=== PATIENT | female | born 1955 | race Caucasian/White ===

== ENCOUNTER → 2019-10-23 10:16 | Outpatient (BNVA) | payer BC, SELFPAY | PROVIDERS: Family Provider Registered Nurse; PCP Registered Nurse; Visit Provider Registered Nurse | DX: I10 Essential (primary) hypertension (principal); Z02.89 Encounter for other administrative examinations | CPT/HCPCS: 80053; 80061 ==

== ENCOUNTER → 2020-04-26 09:01 | Outpatient (BNVA) | payer BC, SELFPAY | PROVIDERS: Family Provider Registered Nurse; PCP Registered Nurse; Visit Provider Podiatrist Foot & Ankle Surgery | DX: M77.32 Calcaneal spur, left foot (principal); M77.31 Calcaneal spur, right foot; M19.072 Primary osteoarthritis, left ankle and foot; M19.071 Primary osteoarthritis, right ankle and foot; M79.672 Pain in left foot; M79.671 Pain in right foot | CPT/HCPCS: 73630 ==

== ENCOUNTER → 2020-11-30 09:57 | Outpatient (BNVA) | payer MEDICARE, SELFPAY | PROVIDERS: Family Provider Registered Nurse; PCP Registered Nurse; Visit Provider Registered Nurse | DX: I10 Essential (primary) hypertension (principal); E03.9 Hypothyroidism, unspecified; R73.9 Hyperglycemia, unspecified | CPT/HCPCS: 80053; 80061; 81000; 83036; 84443; 85025 ==

== ENCOUNTER → 2020-12-07 11:02 | Outpatient (BNVA) | payer MEDICARE, SELFPAY | PROVIDERS: Family Provider Registered Nurse; PCP Registered Nurse; Visit Provider Registered Nurse | DX: Z01.419 Encounter for gynecological examination (general) (routine) without abnormal findings (principal); E03.9 Hypothyroidism, unspecified | CPT/HCPCS: 88175 ==

== ENCOUNTER → 2020-12-28 13:51 | Outpatient (BNVA) | payer MEDICARE, SELFPAY | PROVIDERS: Family Provider Registered Nurse; PCP Registered Nurse; Visit Provider Registered Nurse | DX: Z00.00 Encounter for general adult medical examination without abnormal findings (principal); I10 Essential (primary) hypertension | CPT/HCPCS: 81000 ==

== ENCOUNTER 2021-01-20 07:57 | Outpatient (CLI) | payer MEDICARE, SELFPAY ==
--- NOTE | 2021-01-20 08:02 | MM_ITS ---
WS: [id number] Bilateral screening digital mammogram, 01/20/2021 Clinical Data: SCREENING Comparison: 02/17/2019, 10/24/2017, 01/30/2017, 01/26/2016, 10/07/2014, 07/09/2013, 11/09/2010, 08/23/2009, 04/24/2006, 12/13/2004. Findings: The breast parenchymal pattern shows fibroglandular tissue. No spiculated masses or clustered calcifi cations are seen. There are no secondary signs of carcinoma. Numerous intramammary lymph nodes are pr [place]ent. MM/[id number] Impression: 1. Negative bilateral mammogram unchanged. 2. Recommend annual screening mammograms. BIRADS: 1-Negative FOLLOW UP: 1 Year Follow-up The CAD security checker was used.
== END 2021-01-20 07:58 | disposition home or self-care (01) ==
LOC: RADSHAW 08:00
PROVIDERS: PCP Registered Nurse; Visit Provider Registered Nurse
DX: Z12.31 Encounter for screening mammogram for malignant neoplasm of breast (principal)
CPT/HCPCS: 77067

== ENCOUNTER → 2021-03-31 00:01 | Outpatient (BNVA) | payer MEDICARE, SELFPAY | PROVIDERS: PCP Registered Nurse; Visit Provider Registered Nurse | DX: Z20.822 Contact with and (suspected) exposure to COVID-19 (principal); J06.9 Acute upper respiratory infection, unspecified; H66.92 Otitis media, unspecified, left ear; Z11.52 Encounter for screening for COVID-19; R05.3 Chronic cough | CPT/HCPCS: 87486; 87581; 87633 ==

== ENCOUNTER → 2022-01-11 10:18 | Outpatient (BNVA) | payer MEDICARE, SELFPAY | PROVIDERS: PCP Registered Nurse; Visit Provider Orthopaedic Surgery | DX: M25.561 Pain in right knee (principal) | CPT/HCPCS: 99202 ==

== ENCOUNTER 2022-03-08 08:52 | Outpatient (CLI) | payer MEDICARE, SELFPAY ==
--- NOTE | 2022-03-08 09:02 | MM_ITS ---
WS: [id number] VIEWS: MLO and CC views both breasts. 3D digital tomosynthesis is also included in this exam. Comparison made with prior exam of 10/07/2014, 01/26/2016, 01/30/2017, 10/24/2017, 02/17/2019, 01/20/2021. Findings: There was no sign of mass, architectural distortion or suspicious calcification in either breast. Sta ble appearing nodular densities in both breasts. Scattered fibroglandular densities MM/[id number] Impression: BI-RADS: 2-Benign FOLLOW-UP: 1 Year Follow-up This mammogram was also analyzed by the Computer Aided Detection System R2 Imag e Index Clerk.
== END 2022-03-08 08:53 | disposition home or self-care (01) ==
LOC: RAD 08:53
PROVIDERS: PCP Registered Nurse; Visit Provider Family Medicine
DX: Z12.31 Encounter for screening mammogram for malignant neoplasm of breast (principal)
CPT/HCPCS: 77063; 77067

== ENCOUNTER 2022-06-12 22:00 | Emergency (ER) | payer MEDICARE, SELFPAY ==
[2022-06-12 22:03] VITALS: BP 190/102; PULSE 72; RESP 16; TEMP 36.6; O2SAT 98
[2022-06-12 22:43] LABS: Basophils % 0.5 %; Eosinophils # 0.1 10^3/uL (0.0-0.8); Eosinophils % 0.8 %; Hematocrit 42.5 % (37.0-47.0); Hemoglobin 14.2 g/dL (11.5-15.3); Lymphocytes % 12.2 %; Mean Corpuscular HGB Conc 33.4 g/dL (30.0-36.0); Mean Corpuscular Volume 92.8 fl (81-99); Mean Platelet Volume 10.2 fL (7.4-10.4); Monocytes # 0.6 10^3/uL (0.2-0.9); Monocytes % 6.7 %; Neutrophils # 6.64 10^3/uL (1.8-7.7); Neutrophils % 79.3 %; Nucleated Red Blood Cells % 0 %; Platelet Count 226 10^3/cmm (130-400); Red Blood Count 4.58 10^6/uL (4.1-5.3); Red Cell Distribution Width 12.6 % (12.1-15.1); White Blood Count 8.4 10^3/uL (4.0-10.0)
[2022-06-12 23:00] LABS: Alanine Aminotransferase 14 U/L (0-33); Albumin Level 3.8 g/dL (3.5-5.2); Alkaline Phosphatase 61 U/L (35-105); Aspartate Amino Transferase 17 U/L (0-32); Blood Urea Nitrogen 15 mg/dL (8-23); Calcium 9.5 mg/dL (8.5-10.5); Carbon Dioxide 28 mmol/L (22-29); Chloride 98 mmol/L (98-107); Globulin 3.6 g/dL (1.3-4.6); Glomerular Filtration Rate 71.5 mL/min (90-130); Glucose 114 mg/dL (65-115); Lipase 31 U/L (13-60); Osmolality Calculated 290 mOsm/kg (285-295); Sodium 139 mmol/L (136-145); Total Bilirubin 0.5 mg/dL (0.15-1.2); Total Protein 7.4 g/dL (6.6-8.7)
--- NOTE | 2022-06-12 23:21 | CTR_ITS ---
PROCEDURE INFORMATION: Exam: CT Abdomen And Pelvis With Contrast Exam date and time: 06/12/2022 11:31 PM Age: 66 years old Clinical indication: Abdominal pain; Acute; Prior surgery; Surgery date: 6+ months; Surgery type: Appy; Additional info: Abd pain TECHNIQUE: Imaging protocol: Computed tomography of the abdomen and pelvis with contrast. Radiation optimization: All CT scans at this facility use at least one of these dose optimization techniques: automated exposure control; mA and/or kV adjustment per patient size (includes targeted exams where dose is matched to clinical indication); or iterative reconstruction. Contrast material: OMNI 350; Contrast volume: 100 ml; Contrast route: INTRAVENOUS (IV); REPORTING DATA: Count of CT and Cardiac NM exams in prior 12 months: This patient has received 0 known CTs and 0 known cardiac nuclear medicine studies in the 12 months prior to the current study. COMPARISON: US gall bladder [id number] 01/04/2022 2:02 PM RADIATION DOSE METRICS: Total DLP (mGy-cm): 958.68 FINDINGS: Lungs: Lung bases are clear. Liver: Normal. No mass. Gallbladder and bile ducts: Gallbladder wall is mild-moderately thickened and somewhat indistinct, striated appearance concerning for acute cholecystitis. There is no pericholecystic fluid or inflammatory changes. There are some subtle depended densities within the gallbladder lumen suspicious for noncalcified gallstones. Bile ducts are not dilated with common bile duct measuring 5 mm. Pancreas: Normal. No ductal dilation. Spleen: Normal. No splenomegaly. Adrenal glands: Normal. No mass. Kidneys and ureters: Normal. No hydronephrosis. Stomach and bowel: Scattered diverticula large bowel without evidence of diverticulitis. Appendix: No evidence of appendicitis. Intraperitoneal space: Unremarkable. No free air. No significant fluid collection. Vasculature: Scattered atherosclerotic changes of the abdominal aorta and iliac vessels. No aortic aneurysm. Lymph nodes: Unremarkable. No enlarged lymph nodes. Urinary bladder: Unremarkable as visualized. Reproductive: Uterus is retroverted. Bones/joints: Unremarkable. No acute fracture. Soft tissues: There is a bandlike area of soft tissue thickening and calcification within the subcutaneous tissues posterior to the lower lumbar spine that may be postsurgical in nature. This should be confirmed correlate with history. CT/CT abdomen pelvis w con* [id number] IMPRESSION: Cholelithiasis with additional findings suspicious for acute cholecystitis. Follow-up gallbladder ultrasound recommended for further assessment.
[2022-06-12] MEDS: iohexol 350 mg/mL 500 mL Btl (per mL) IV (23:27)
--- NOTE | 2022-06-12 23:28 | W.ED.ABDPA2 ---
HPI - Abdominal Pain General: Chief Complaint: Abdominal Pain Stated Complaint: abd pain Time Seen by Provider: 06/12/22 23:06 Source: patient Mode of arrival: ambulatory Limitations: no limitations History of Present Illness: 66-year-old female states she has been having abdominal pain over the last 10 days states that sharp pain in the right side of her abdomen she is seen twice last week [place] states they did blood work but she never had any imaging states that tonight her pain is worsened and she had an episode of vomiting she denies any fevers denies any dysuria denies any worsening proving factors. Her pain is currently a 9 out of 10. Associated Symptoms: Reports nausea and vomiting; Denies chills, dysuria and fever(s) Review of Systems Const: Denies: fever(s), chills, body aches or change in appetite Eyes: Denies: blurry vision or eye discomfort ENMT: Denies: throat pain or dental pain Card: Denies: chest pain Resp: Denies: dyspnea GI: Reports: abdominal pain, nausea and vomiting : Denies: dysuria Musc: Denies: neck pain or back pain Skin/Breast: Denies: rash Neuro: Denies: headache(s) Psych: Denies: depression Jamshid/Lymph: Denies: easy bruising All/Imm: Denies: urticaria PFSH ED PFSH: Medical History Hypothyroid Surgical History History of bilateral tubal ligation Hx of appendectomy Hx of oral surgery Hx of tonsillectomy Family History Other Cancer Diabetes Hypertension Social History Smoking and tobacco status: never smoked Alcohol intake: never Adopted: No Caregiver/support person: No Lives independently: No Household members: spouse Marital status: service: No Current occupational status: retired Sexually active: Yes Current gender identity: Female Physical Exam Const: COMMON NORMALS: no acute distress, patient oriented x3 and healthy appearing HENMT: COMMON NORMALS: normocephalic and atraumatic HEAD & SCALP: normocephalic and atraumatic Eye: COMMON NORMALS: Equal, round and reactive pupils present and EOMs intact bilaterally PUPIL: Yes Equal, round and reactive pupils present Neck/C-Spine: COMMON NORMALS: full ROM and supple Chest: COMMONS NORMALS: normal inspection of the chest and normal palpation of entire chest wall Resp: COMMON NORMALS: normal respiratory effort, No retractions, No use of accessory muscles and clear to auscultation bilaterally AUSCULTATION: clear to auscultation bilaterally Cardio: COMMON NORMALS: regular rate, regular rhythm and No murmurs present (Cardio) RATE: regular rate RHYTHM: regular rhythm GI: COMMON NORMALS: Normal to inspection, nondistended, normoactive bowel sounds present, Soft to palpation and no masses PALPATION: Yes Soft to palpation OTHER: right sided tenderness Extremity: COMMON NORMALS: normal to inspection and full ROM Neuro: COMMON NORMALS: patient oriented x3, moves all extremities and no focal motor deficits Psych: COMMON NORMALS: mental status grossly normal, Normal thought process present and cooperative THOUGHT PROCESS: Normal thought process present Skin: COMMON NORMALS: no rashes or lesions noted and no wounds GENERAL SKIN EXAM: no rashes or lesions noted Course Vital Signs: Vital signs: Vital Signs Temperature 97.9 F 06/12/22 22:03 Pulse Rate 72 06/12/22 22:03 Respiratory Rate 16 06/12/22 22:03 Blood Pressure 190/102 06/12/22 22:03 Pulse Oximetry 98 06/12/22 22:03 Oxygen Delivery Me thod 06/12/22 22:03 MDM - Abdominal Pain Medical Decision Making Patient presents here with abdominal pain likely from cholelithiasis. White count is normal no signs of acute cholecystitis her exam at discharge is benign we will get her follow-up with surgery we will place her on Cipro along with pain meds she is to return if worsening she understands agrees to plan. Lab Data 06/12/22 22:36 06/12/22 22:36 Labs/Radiology: Radiology Impressions Abdomen/Pelvis CT 06/12/22 23:21 IMPRESSION: Cholelithiasis with additional findings suspicious for acute cholecystitis. Follow-up gallbladder ultrasound recommended for further assessment. Gallbladder Ultrasound 06/13/22 00:21 IMPRESSION: 1. Cholelithiasis, see additional details above. 2. Mild biliary tree prominence, see above discussion. 3. Other findings discussed above. Laboratory Results WBC 8.4 10^3/uL (4.0-10.0) 06/12/22 22: RBC 4.58 10^6/uL (4.1-5.3) 06/12/22 22:36 Hgb 14.2 g/dL (11.5-15.3) 06/12/22 22:36 Hct 42.5 % (37.0-47.0) 06/12/22 22:36 MCV 92.8 fl (81-99) 06/12/22 22:36 MCH 31.0 pg (28.0-34.0) 06/12/22 22: MCHC 33.4 g/dL (30.0-36.0) 06/12/22 22:36 RDW 12.6 % (12.1-15.1) 06/12/22 22: Plt Count 226 10^3/cmm (130-400) 06/12/22 22: MPV 10.2 fL (7.4-10.4) 06/12/22 22:36 Neut % (Auto) 79.3 % 06/12/22 22:36 Lymph % (Auto) 12.2 % 06/12/22 22:36 Wood % (Auto) 6.7 % 06/12/22 22:36 Eos % (Auto) 0.8 % 06/12/22 22:36 Baso % (Auto) 0.5 % 06/12/22:36 Neut # (Auto) 6.64 10^3/uL (1.8-7.7) 06/12/22 22:36 Lymph # (Auto) 1.0 10^3/uL (0.8-4.8) 06/12/22 22:36 Wood # (Auto) 0.6 10^3/uL (0.2-0.9) 06/12/22:36 Eos # (Auto) 0.1 10^3/uL (0.0-0.8) 06/12/22 22:36 Baso # (Auto) 0.0 10^3/uL (0.0-0.1) 06/12/22 22:36 Nucleated RBC % (auto) 0 % 06/12/22: Nucleated RBCs # 0.0 /100WBC 06/12/22 22:36 Sodium 139 mmol/L (136-145) 06/12/22 22:36 Potassium 4.0 mmol/L (3.5-5.1) 06/12/22 22:36 Chloride 98 mmol/L (98-107) 06/12/22 22:36 Carbon Dioxide 28 mmol/L (22-29) 06/12/22 22:36 Anion Gap 17.0 (5-19) 06/12/22 22:36 BUN 15 mg/dL (8-23) 06/12/22 22:36 Creatinine 0.8 mg/dL (0.5-0.9) 06/12/22 22:36 GFR Calculation 71.5 mL/min (90-130) L 06/12/22 22:36 Glucose 114 mg/dL (65-115) 06/12/22 22:36 Calculated Osmolality 290 mOsm/kg (285-295) 06/12/22 22:36 Lactate 1.2 mmol/L (0.5-2.2) 06/12/22 22:36 Calcium 9.5 mg/dL (8.5-10.5) 06/12/22 22:36 Total Bilirubin 0.5 mg/dL (0.15-1.2) 06/12/22 22:36 AST 17 U/L (0-32) 06/12/22 22:36 ALT 14 U/L (0-33) 06/12/22 22:36 Alkaline Phosphatase 61 U/L (35-105) 06/12/22 22:36 Total Protein 7.4 g/dL (6.6-8.7) 06/12/22 22:36 Albumin 3.8 g/dL (3.5-5.2) 06/12/22 22:36 Globulin 3.6 g/dL (1.3-4.6) 06/12/22 22:36 Lipase 31 U/L (13-60) 06/12/22 22:36 Urine Color Yellow (Yellow) 06/12/22 23:55 Urine Appearance Clear (CLEAR) 06/12/22 23:55 Urine pH 5 (5-7) 06/12/22 23:55 Ur Specific [place] 1.010 (1.005-1.030) 06/12/22 23:55 Urine Protein Trace (Negative) 06/12/22 23:55 Urine Glucose (UA) Norm (Normal) 06/12/22 23:55 Urine Ketones 2+ (Negative) H 06/12/22 23:55 Urine Blood Neg (Negative) 06/12/22 23:55 Urine Nitrate Negative (Negative) 06/12/22 23:55 Urine Bilirubin Neg (Negative) 06/12/22 23:55 Urine Urobilinogen Norm mg/dL (Negative) 06/12/22 23:55 Ur Leukocyte Esterase Negative (Negative) 06/12/22 23:55 Urine RBC 0-4 /hpf (0-2) H 06/12/22 23:55 Urine WBC 0-4 /hpf (0-5) H 06/12/22 23:55 Ur Squamous Epith Cells 0-4 /hpf (0-5) H 06/12/22 23:55 Amorphous Sediment Not Reportable 06/12/22 23:55 Urine Bacteria Trace /hpf (NONE) 06/12/22 23:55 Discharge Plan Discharge Patient Disposition: Home Clinical Impression: Abdominal pain, Cholelithiasis Condition: Stable Prescriptions: New hydrocodone-acetaminophen 5-325 mg tablet 1 tab PO Q6H PRN (Reason: pain) Qty: 14 0RF ondansetron 4 mg tablet,disintegrating 4 mg PO Q6H PRN (Reason: nausea and vomiting) Qty: 14 0RF ciprofloxacin HCl 500 mg tablet 500 mg PO BID Qty: 14 0RF No Action estradiol [Estrace] 0.01 % (0.1 mg/gram) cream 0.5 appful vaginal .twice a week 30 Days Qty: 42.5 1RF metronidazole 500 mg tablet 500 mg PO BID 10 Days Qty: 20 0RF nystatin 100,000 unit/gram ointment 1 applic topical BID Qty: 30 2RF levothyroxine 25 mcg tablet See Rx Instructions .ROUTE .COMPLEX Qty: 90 0RF Dose Instruction: TAKE 1 TABLET BY MOUTH DAILY Rx Instructions: TAKE 1 TABLET BY MOUTH DAILY Discharge Orders: Discharge ED (Routine); Ordered 06/13/22 Ordered By: Minoo Wilburn Referrals: Frank Perez DO [Physician] - 1-3 days Mulugeta Bonds MD [Primary Care Provider] - Discharge Diet: Advance as tolerated Discharge Activity: Resume usual activity Patient Instructions: Gallstones (ED), Abdominal Pain (ED), Opioid Safety Coding Level of Care Code ED Inspector Returned Materials for [employer]
[2022-06-12 23:32] LABS: Lactate (Lactic Acid level) 1.2 mmol/L (0.5-2.2)
[2022-06-12] MEDS: ondansetron 2 mg/ML SDV 2 mL 4 MG IVP (23:53)
[2022-06-12] MEDS: morphine 4 mg/mL SDV 1 mL IVP (23:53)
--- NOTE | 2022-06-13 00:21 | USR_ITS ---
PROCEDURE INFORMATION: Exam: US Abdomen, Limited; Right Upper Quadrant Exam date and time: 06/13/2022 12:47 AM Age: 66 years old Clinical indication: Abdominal pain; Patient HX: Ruq pain , chronic, since December 2021 TECHNIQUE: Imaging protocol: Real time ultrasound of the abdomen with image documentation. Limited exam focused on the right upper quadrant. COMPARISON: US gall bladder [id number] 01/04/2022 2:02 PM FINDINGS: Liver: Unremarkable liver, no focal abnormality. The main portal vein appears patent, with hepatopetal flow. Gallbladder: Multiple shadowing gallstones within the gallbladder. There is also a moderate amount of biliary sludge in the gallbladder. The gallbladder appears abnormally distended, transverse diameter up to 5 cm. Moderate diffuse gallbladder wall thickening/edema, measuring up to 7.5 mm. No definite pericholecystic fluid. While nonspecific, these findings could represent acute or chronic cholecystitis. Technologist states patient was tender over the gallbladder region during scanning. Biliary ducts: Mild biliary tree prominence for age, with common duct measuring up to 7.3 mm. No visible common duct stone by ultrasound. Correlation with laboratory/bilirubin levels may be helpful to determine if there is any significant biliary obstruction. Pancreas: Visible pancreas unremarkable. Right kidney: Images of the right kidney show no hydronephrosis. US/US gall bladder [id number] IMPRESSION: 1. Cholelithiasis, see additional details above. 2. Mild biliary tree prominence, see above discussion. 3. Other findings discussed above.
[2022-06-13 00:24] LABS: Add Urine Culture? No; Add Urine Microscopic? YES; Bacteria Urine TRACE /hpf; Bilirubin Urine Neg (Negative); Blood Urine Neg (Negative); Glucose Urine UA Norm (Normal); Ketones Urine 2+ (Negative); Leukocyte Esterase Urine Negative (Negative); Nitrate Urine Negative (Negative); Protein Urine Trace (Negative); RBC Urine 0-4 /hpf (0-2); Squamous Epithelial Cell Urine 0-4 /hpf (0-5); Urine Appearance Clear (CLEAR); Urine Color Yellow (Yellow); Urobilinogen Urine Norm (Negative); WBC Urine 0-4 /hpf (0-5); pH Urine 5 (5-7)
[2022-06-13] MEDS: sodium chloride 0.9% 1,000 ML 999 ML IV (00:45)
--- NOTE | 2022-06-13 09:54 | DCPLANNER ---
Addendum entered by Juli De Dios 06/14/22 08:58: manager msw received the following message from the general surgery clinic regarding follow up appointment: Offered patient my next available appointment (07/12) she did not want to wait that long and stated that Dr. Rushing can see her next week. Original Note: manager msw had message to schedule a follow up appointment for patient with general surgery. manager msw sent patients information to the front office staff at general surgery. Patients information will be printed and reviewed. Clinic will call patient with appointment information.
== END 2022-06-13 02:30 | disposition home or self-care (01) ==
PROVIDERS: Emergency Provider Emergency Medicine; PCP Family Medicine
DX: K80.20 Calculus of gallbladder without cholecystitis without obstruction (principal)
CPT/HCPCS: 74177; 76705; 80053; 81001; 81003; 83605; 83690; 85025; 96361; 96374; 96375; 99285; J2270; J2405; J7030; Q9967

== ENCOUNTER 2022-07-11 09:59 | Emergency (ER) | payer MEDICARE, SELFPAY ==
[2022-07-11] VITALS (14 sets, daily range): BP systolic 129–158; BP diastolic 65–102; PULSE 80–96; RESP 14–18; TEMP 37.2; O2SAT 90–97
--- NOTE | 2022-07-11 10:13 | XR_ITS ---
WS: [id number] Exam: XR chest 1V portable [id number] Date/Time of Exam: 07/11/2022 10:15 AM Reason For Exam: dyspnea/cough No priors. The lungs are fully expanded. No infiltrates are noted. Cardiomediastinal silhouette is unremarkable for technique. Bony structures are intact. XR/XR chest 1V portable [id number] IMPRESSION: 1. No acute cardiopulmonary process noted.
--- NOTE | 2022-07-11 10:14 | ECG_ITS ---
[facility] Test Date: 2022-07-11 Pat Name: Traci Mathew Department: Room: Gender: Female [employer]: : 1955 Requested By: Moreno Benson Order Number: [id number] Codey MD: Ramy Levin M.D. Measurements Intervals [place] Rate: 83 P: 36 CT: 152 QRS: 43 QRSD: 85 T: 14 QT: 339 QTc: 400 Interpretive Statements SINUS RHYTHM LOW QRS VOLTAGE IN PRECORDIAL LEADS [QRS DEFLECTION < 1.0 mV IN CHEST LEADS] No previous ECG available for comparison Electronically Signed On 07-11-2022 20:41:18 CDT by Ramy Levin M.D. [id number]
[2022-07-11] MEDS: ondansetron 2 mg/ML SDV 2 mL 4 MG IVP (10:37)
[2022-07-11] MEDS: morphine 4 mg/mL SDV 1 mL IVP (10:37)
--- NOTE | 2022-07-11 10:40 | W.ED.ABDPA2 ---
Documented by User: Moreno Harmon DO 07/12/22 07:24 HPI - Abdominal Pain General: Chief Complaint: Abdominal Pain Stated Complaint: SOB, Rib pain, Muscle pain Time Seen by Provider: 07/11/22 10:11 Source: patient Mode of arrival: ambulatory History of Present Illness: Six 6-year-old female presents emergency room. Complaining of abdominal pain that began 2 days ago. Its worse when she stands. Is mostly in epigastric right upper quadrant area. She had a laparoscopic cholecystectomy about 2 weeks ago. She had been doing well up until to 48 hours ago. She denies any dysuria urgency or frequency no hematochezia melena hematemesis or coffee-ground emesis. MD elicited complaint: abdominal pain Pertinent past history: other (Recent cholecystectomy by Dr. R[facility] at [facility]) Onset (ago): day(s) (3) Pain Consistency: constant Location: RUQ Severity: severe Quality: cramping Radiation: none Exacerbating factors: nothing Relieving factors: nothing Associated Symptoms: Reports nausea and vomiting; Denies anorexia, belching, bloating, change in bowel habits, change in stool character, chills, coffee ground emesis, constipation, GI cramping, diarrhea, dyspepsia, dysuria, excessive flatus, fever(s), heartburn, hematochezia, hematuria, hematemesis, fecal incontinence, loose stools, melena, poor appetite and syncope Review of Systems Const: Denies: fever(s) or chills ENMT: Denies: throat pain, ear or mastoid pain, nasal discharge or nasal congestion Card: Denies: chest pain, palpitations, irregular heart rhythm or syncope Resp: Denies: dyspnea, productive cough or non-productive cough GI: Reports: abdominal pain, nausea and vomiting; Denies: hematemesis, coffee ground emesis, heartburn, diarrhea, constipation, bloating, GI cramping, belching, excessive flatus, fecal incontinence, change in bowel habits, change in stool character, hematochezia or melena : Denies: dysuria or hematuria Skin/Breast: Denies: rash or pruritus PFSH ED PFSH: Medical History Hypothyroid Surgical History History of bilateral tubal ligation Hx of appendectomy Hx of oral surgery Hx of tonsillectomy Family History Other Cancer Diabetes Hypertension Social History Smoking and tobacco status: never smoked Alcohol intake: never Substance/Drug Use: never Adopted: No Caregiver/support person: No Lives independently: No Household members: spouse Marital status: service: No Current occupational status: retired Sexually active: Yes Do you think of yourself as: Straight/Heterosexual Current gender identity: Female Physical Exam Const: GENERAL APPEARANCE: cooperative and comfortable ORIENTATION/CONSCIOUSNESS: Yes awake, Yes oriented to person, Yes oriented to place and Yes oriented to time HENMT: COMMON NORMALS: normocephalic, atraumatic and hearing grossly normal bilaterally HEAD & SCALP: normocephalic and atraumatic Resp: COMMON NORMALS: normal respiratory effort, No retractions, No use of accessory muscles and clear to auscultation bilaterally AUSCULTATION: clear to auscultation bilaterally Cardio: COMMON NORMALS: regular rate, regular rhythm and No murmurs present (Cardio) RATE: regular rate RHYTHM: regular rhythm GI: COMMON NORMALS: No hepatosplenomegaly present AUSCULTATION: Yes normoactive bowel sounds PALPATION: Yes Tenderness to palpation present (GI) (Diffused epigastric upper quadrant abdominal tenderness), No Guarding due to palpation present (GI) and Yes No hepatosplenomegaly present Extremity: COMMON NORMALS: normal to inspection, capillary refill normal, no clubbing, cyanosis or edema, no calf tenderness and no pedal edema Neuro: SENSORIUM/ORIENTATION: Yes oriented to person, Yes oriented to place and Yes oriented to time Skin: COMMON NORMALS: no rashes or lesions noted GENERAL SKIN EXAM: no rashes or lesions noted Course Vital Signs: Vital signs: Vital Signs Temperature 99.0 F 07/11/22 10:03 Pulse Rate 90 07/11/22 19:38 Respiratory Rate 16 07/11/22 19:38 Blood Pressure 131/65 07/11/22 19:38 Pulse Oximetry 95 07/11/22 19:38 Oxygen Delivery Me thod Nasal Cannula 07/11/22 19:28 Oxygen Flow Rate 2 04/25/23 18:00 MDM - Abdominal Pain Medical Decision Making Concerning for bile leak. Pain medications given discussed with the patient also discussed with Who did the original procedure, and Dr. David who read the CT. Recommendation is for a HIDA scan to confirm bile leak if this is the case patient will require transfer for ERCP. At change of shift still waiting on HIDA scan. There is a delay because the nuclear material had to be transported from [facility]. Care signed out to Dr. Wilburn at change of shift. See final notes for diagnosis and disposition. CT shows what appears to be a bile leak we are waiting on nuclear material for HIDA scan to verify if it is in bile leak will need transferred for ERCP. Patient presents here with a bile leak noted on HIDA scan along with CT scan did speak to physician at [facility] will transfer there for higher level of care for ERCP GI needs. She has been stable while here. Medical Records I reviewed the patient's medical records. Lab Data I reviewed the patient's lab results. 07/11/22 10:34 07/11/22 10:34 Labs/Radiology: Radiology Impressions Chest X-Ray 07/11/22 10:13 IMPRESSION: 1. No acute cardiopulmonary process noted. Abdomen/Pelvis CT 07/11/22 10:43 IMPRESSION: 1. 2 well-circumscribed fluid collections in the gallbladder fossae and deep to the LEFT hepatic lobe suspicious for biloma status post cholecystectomy. Contiguous small amount of fluid about the RIGHT hepatic lobe. Recommend HIDA scan for further evaluation. 2. Mild inflammatory stranding and induration RIGHT upper quadrant. 3. LEFT subhepatic fluid collection compresses the distal stomach and proximal duodenum. 4. Small to moderate amount of free fluid in the pelvis likely postoperative. Notified Moreno Harmon DO at 07/11/2022 1:05 PM. Hepatobiliary Scan Nuclear Medicine 07/11/22 12:56 IMPRESSION: 1. There is accumulation of radiotracer in the gallbladder fossa, this corresponds to the fluid collection noted on the previous CT scan and is suspicious for a bile leak with an associated biloma. 2. No accumulation of radiotracer was seen to correspond to the 2nd fluid collection inferior to the left hepatic lobe. COMMENTS: THIS REPORT CONTAINS FINDINGS THAT MAY BE CRITICAL TO PATIENT CARE. The findings were verbally communicated via telephone conference with Dr. Wilburn at 5:29 PM CDT on 07/11/2022. The findings were acknowledged and understood. Laboratory Results WBC 11.7 10^3/uL (4.0-10.0) H 07/11/22 10:34 RBC 4.39 10^6/uL (4.1-5.3) 07/11/22 10:34 Hgb 13.6 g/dL (11.5-15.3) 07/11/22 10:34 Hct 42.3 % (37.0-47.0) 07/11/22 10:34 MCV 96.4 fl (81-99) 07/11/22 10:34 MCH 31.0 pg (28.0-34.0) 07/11/22 10:34 MCHC 32.2 g/dL (30.0-36.0) 07/11/22 10:34 RDW 12.4 % (12.1-15.1) 07/11/22 10:34 Plt Count 386 10^3/cmm (130-400) 07/11/22 10:34 MPV 9.7 fL (7.4-10.4) 07/11/22 10:34 Neut % (Auto) 86.7 % 07/11/22 10:34 Lymph % (Auto) 7.8 % 07/11/22 10:34 [place] % (Auto) 4.5 % 07/11/22 10:34 Eos % (Auto) 0.1 % 07/11/22 10:34 Baso % (Auto) 0.3 % 07/11/22 10:34 Neut # (Auto) 10.15 10^3/uL (1.8-7.7) H 07/11/22 10:34 Lymph # (Auto) 0.9 10^3/uL (0.8-4.8) 07/11/22 10:34 Franklin # (Auto) 0.5 10^3/uL (0.2-0.9) 07/11/22 10:34 Eos # (Auto) 0.0 10^3/uL (0.0-0.8) 07/11/22 10:34 Baso # (Auto) 0.0 10^3/uL (0.0-0.1) 07/11/22 10:34 Nucleated RBC % (auto) 0 % 07/11/22 10:34 Nucleated RBCs # 0.0 /100WBC 07/11/22 10:34 Sodium 138 mmol/L (136-145) 07/11/22 10:34 Potassium 4.6 mmol/L (3.5-5.1) 07/11/22 10:34 Chloride 100 mmol/L (98-107) 07/11/22 10:34 Carbon Dioxide 25 mmol/L (22-29) 07/11/22 10:34 Anion Gap 17.6 (5-19) 07/11/22 10:34 BUN 11 mg/dL (8-23) 07/11/22 10:34 Creatinine 0.8 mg/dL (0.5-0.9) 07/11/22 10:34 GFR Calculation 71.5 mL/min (90-130) L 07/11/22 10:34 Glucose 112 mg/dL (65-115) 07/11/22 10:34 Calculated Osmolality 286 mOsm/kg (285-295) 07/11/22 10:34 Lactic Acid 1.6 mmol/L (0.5-2.2) 07/11/22 13:13 Calcium 9.1 mg/dL (8.5-10.5) 07/11/22 10:34 Total Bilirubin 1.6 mg/dL (0.15-1.2) H 07/11/22 10:34 AST 81 U/L (0-32) H 07/11/22 10:34 ALT 159 U/L (0-33) H 07/11/22 10:34 Alkaline Phosphatase 198 U/L (35-105) H 07/11/22 10:34 Troponin T Baseline 18 ng/L (0-10) H 07/11/22 10:34 Troponin T 120 Minute 16.91 ng/L (0-10) H 07/11/22 13:13 Delta Troponin T -1.09 ABS# (0-10) L 07/11/22 13:13 Troponin T Hi Sens 6Hr 19.18 ng/L (0-10) H 07/11/22 16:34 Troponin T Hi Sens 6Hr Delta 1.18 ng/L (0-12) 07/11/22 16:34 Total Protein 6.3 g/dL (6.6-8.7) L 07/11/22 10:34 Albumin 3.7 g/dL (3.5-5.2) 07/11/22 10:34 Globulin 2.6 g/dL (1.3-4.6) 07/11/22 10:34 Lipase 22 U/L (13-60) 07/11/22 10:34 Urine Color [place] (Yellow) 07/11/22 14:07 Urine Appearance Cloudy (CLEAR) A 07/11/22 14:07 Urine pH 5 (5-7) 07/11/22 14:07 Ur Specific [place] 1.025 (1.005-1.030) 07/11/22 14:07 Urine Protein 1+ (Negative) H 07/11/22 14:07 Urine Glucose (UA) Norm (Normal) 07/11/22 14:07 Urine Ketones 1+ (Negative) H 07/11/22 14:07 Urine Blood 2+ (Negative) H 07/11/22 14:07 Urine Nitrate Positive (Negative) H 07/11/22 14:07 Urine Bilirubin 2+ (Negative) H 07/11/22 14:07 Urine Urobilinogen 4 mg/dL (Negative) H 07/11/22 14:07 Ur Leukocyte Esterase 1+ (Negative) H 07/11/22 14:07 Urine RBC 5-10 /hpf (0-2) H 07/11/22 14:07 Urine WBC 10-15 /hpf (0-5) H 07/11/22 14:07 Ur Squamous Epith Cells 25-40 /hpf (0-5) H 07/11/22 14:07 Amorphous Sediment Not Reportable 07/11/22 14:07 Urine Bacteria 2+ /hpf (NONE) H 07/11/22 14:07 Urine Mucus 2+ /hpf 07/11/22 14:07 Discharge Plan Discharge Patient Disposition: Xfer Short-Term Hosp Clinical Impression: Abdominal pain, Bile leak Condition: Stable Referrals: Mulugeta Bonds MD [Primary Care Provider] - Patient Instructions: Abdominal Pain (ED) Coding Level of Care Code ED Aggregate Conveyor Operator for Chg Fwd Documented by User: Minoo Wilburn MD 07/11/22 18:16 HPI - Abdominal Pain General: Chief Complaint: Abdominal Pain Stated Complaint: SOB, Rib pain, Muscle pain Time Seen by Provider: 07/11/22 10:11 PFSH ED PFSH: Medical History Hypothyroid Surgical History History of bilateral tubal ligation Hx of appendectomy Hx of oral surgery Hx of tonsillectomy Family History Other Cancer Diabetes Hypertension Social History Smoking and tobacco status: never smoked Alcohol intake: never Substance/Drug Use: never Adopted: No Caregiver/support person: No Lives independently: No Household members: spouse Marital status: service: No Current occupational status: retired Sexually active: Yes Do you think of yourself as: Straight/Heterosexual Current gender identity: Female Course Vital Signs: Vital signs: Vital Signs Temperature 99.0 F 07/11/22 10:03 Pulse Rate 90 07/11/22 19:38 Respiratory Rate 16 07/11/22 19:38 Blood Pressure 131/65 07/11/22 19:38 Pulse Oximetry 95 07/11/22 19:38 Oxygen Delivery Me thod Nasal Cannula 07/11/22 19:28 Oxygen Flow Rate 2 07/11/22 18:00 MDM - Abdominal Pain Medical Decision Making CT shows what appears to be a bile leak we are waiting on nuclear material for HIDA scan to verify if it is in bile leak will need transferred for ERCP. Patient presents here with a bile leak noted on HIDA scan along with CT scan did speak to physician at [facility] will transfer there for higher level of care for ERCP GI needs. She has been stable while here. Lab Data 07/11/22 10:34 07/11/22 10:34 Labs/Radiology: Radiology Impressions Chest X-Ray 07/11/22 10:13 IMPRESSION: 1. No acute cardiopulmonary process noted. Abdomen/Pelvis CT 07/11/22 10:43 IMPRESSION: 1. 2 well-circumscribed fluid collections in the gallbladder fossae and deep to the LEFT hepatic lobe suspicious for biloma status post cholecystectomy. Contiguous small amount of fluid about the RIGHT hepatic lobe. Recommend HIDA scan for further evaluation. 2. Mild inflammatory stranding and induration RIGHT upper quadrant. 3. LEFT subhepatic fluid collection compresses the distal stomach and proximal duodenum. 4. Small to moderate amount of free fluid in the pelvis likely postoperative. Notified Moreno Harmon DO at 07/11/2022 1:05 PM. Hepatobiliary Scan Nuclear Medicine 07/11/22 12:56 IMPRESSION: 1. There is accumulation of radiotracer in the gallbladder fossa, this corresponds to the fluid collection noted on the previous CT scan and is suspicious for a bile leak with an associated biloma. 2. No accumulation of radiotracer was seen to correspond to the 2nd fluid collection inferior to the left hepatic lobe. COMMENTS: THIS REPORT CONTAINS FINDINGS THAT MAY BE CRITICAL TO PATIENT CARE. The findings were verbally communicated via telephone conference with Dr. Wilburn at 5:29 PM CDT on 07/11/2022. The findings were acknowledged and understood. Laboratory Results WBC 11.7 10^3/uL (4.0-10.0) H 07/11/22 10:34 RBC 4.39 10^6/uL (4.1-5.3) 07/11/22 10:34 Hgb 13.6 g/dL (11.5-15.3) 07/11/22 10:34 Hct 42.3 % (37.0-47.0) 07/11/22 10:34 MCV 96.4 fl (81-99) 07/11/22 10:34 MCH 31.0 pg (28.0-34.0) 07/11/22 10:34 MCHC 32.2 g/dL (30.0-36.0) 07/11/22 10:34 RDW 12.4 % (12.1-15.1) 07/11/22 10:34 Plt Count 386 10^3/cmm (130-400) 07/11/22 10:34 MPV 9.7 fL (7.4-10.4) 07/11/22 10:34 Neut % (Auto) 86.7 % 07/11/22 10:34 Lymph % (Auto) 7.8 % 07/11/22 10:34 Franklin % (Auto) 4.5 % 07/11/22 10:34 Eos % (Auto) 0.1 % 07/11/22 10:34 Baso % (Auto) 0.3 % 07/11/22 10:34 Neut # (Auto) 10.15 10^3/uL (1.8-7.7) H 07/11/22 10:34 Lymph # (Auto) 0.9 10^3/uL (0.8-4.8) 07/11/22 10:34 Franklin # (Auto) 0.5 10^3/uL (0.2-0.9) 07/11/22 10:34 Eos # (Auto) 0.0 10^3/uL (0.0-0.8) 07/11/22 10:34 Baso # (Auto) 0.0 10^3/uL (0.0-0.1) 07/11/22 10:34 Nucleated RBC % (auto) 0 % 07/11/22 10:34 Nucleated RBCs # 0.0 /100WBC 07/11/22 10:34 Sodium 138 mmol/L (136-145) 07/11/22 10:34 Potassium 4.6 mmol/L (3.5-5.1) 07/11/22 10:34 Chloride 100 mmol/L (98-107) 07/11/22 10:34 Carbon Dioxide 25 mmol/L (22-29) 07/11/22 10:34 Anion Gap 17.6 (5-19) 07/11/22 10:34 BUN 11 mg/dL (8-23) 07/11/22 10:34 Creatinine 0.8 mg/dL (0.5-0.9) 07/11/22 10:34 GFR Calculation 71.5 mL/min (90-130) L 07/11/22 10:34 Glucose 112 mg/dL (65-115) 07/11/22 10:34 Calculated Osmolality 286 mOsm/kg (285-295) 07/11/22 10:34 Lactic Acid 1.6 mmol/L (0.5-2.2) 07/11/22 13:13 Calcium 9.1 mg/dL (8.5-10.5) 07/11/22 10:34 Total Bilirubin 1.6 mg/dL (0.15-1.2) H 07/11/22 10:34 AST 81 U/L (0-32) H 07/11/22 10:34 ALT 159 U/L (0-33) H 07/11/22 10:34 Alkaline Phosphatase 198 U/L (35-105) H 07/11/22 10:34 Troponin T Baseline 18 ng/L (0-10) H 07/11/22 10:34 Troponin T 120 Minute 16.91 ng/L (0-10) H 07/11/22 13:13 Delta Troponin T -1.09 ABS# (0-10) L 07/11/22 13:13 Troponin T Hi Sens 6Hr 19.18 ng/L (0-10) H 07/11/22 16:34 Troponin T Hi Sens 6Hr Delta 1.18 ng/L (0-12) 07/11/22 16:34 Total Protein 6.3 g/dL (6.6-8.7) L 07/11/22 10:34 Albumin 3.7 g/dL (3.5-5.2) 07/11/22 10:34 Globulin 2.6 g/dL (1.3-4.6) 07/11/22 10:34 Lipase 22 U/L (13-60) 07/11/22 10:34 Urine Color [place] (Yellow) 07/11/22 14:07 Urine Appearance Cloudy (CLEAR) A 07/11/22 14:07 Urine pH 5 (5-7) 07/11/22 14:07 Ur Specific [place] 1.025 (1.005-1.030) 07/11/22 14:07 Urine Protein 1+ (Negative) H 07/11/22 14:07 Urine Glucose (UA) Norm (Normal) 07/11/22 14:07 Urine Ketones 1+ (Negative) H 07/11/22 14:07 Urine Blood 2+ (Negative) H 07/11/22 14:07 Urine Nitrate Positive (Negative) H 07/11/22 14:07 Urine Bilirubin 2+ (Negative) H 07/11/22 14:07 Urine Urobilinogen 4 mg/dL (Negative) H 07/11/22 14:07 Ur Leukocyte Esterase 1+ (Negative) H 07/11/22 14:07 Urine RBC 5-10 /hpf (0-2) H 07/11/22 14:07 Urine WBC 10-15 /hpf (0-5) H 07/11/22 14:07 Ur Squamous Epith Cells 25-40 /hpf (0-5) H 07/11/22 14:07 Amorphous Sediment Not Reportable 07/11/22 14:07 Urine Bacteria 2+ /hpf (NONE) H 07/11/22 14:07 Urine Mucus 2+ /hpf 07/11/22 14:07 Discharge Plan Discharge Patient Disposition: Xfer Short-Term Hosp Clinical Impression: Abdominal pain, Bile leak Condition: Stable Referrals: Mulugeta Bonds MD [Primary Care Provider] - Patient Instructions: Abdominal Pain (ED) Coding Level of Care Code ED Aggregate Conveyor Operator for Win Campbell
[2022-07-11] MEDS: sodium chloride 0.9% 1,000 ML 999 ML IV (10:41)
--- NOTE | 2022-07-11 10:43 | CT_ITS ---
WS: [id number] CT ABDOMEN PELVIS TECHNIQUE: Contrast-enhanced CT of the abdomen and pelvis with coronal and sagittal reformatted image s. CLINICAL INFORMATION: abd pain COMPARISON: CT June 12, 2022 DLP: 961.[address] scans at [facility] use at least one of these dose optimization techniques: automated e xposure control; mA and/or kV adjustment per patient size (includes targeted exams where dose is matc hed to clinical indication); or iterative reconstruction. FINDINGS: Recent post cholecystectomy. Fluid collections in the gallbladder fossa measuring 6.3 x 3.6 cm adjace nt to the cholecystectomy clips. Additional collection inferior to the LEFT hepatic lobe measuring 5. 3 x 3.8 cm. Collection abuts the traversing distal stomach and 1st part of the duodenum. Mild inflamm atory changes in the RIGHT upper quadrant. Small amount of fluid about the RIGHT hepatic lobe appears contiguous with the gallbladder fossa fluid collection. Findings suspicious for biloma post cholecys tectomy. Abscess is an additional less likely consideration. Distal common bile duct appears normal. Slight bibasilar atelectasis. Noncalcified nodule RIGHT lower lobe along the fissure measuring 6 mm. Adrenal glands are normal. Normal spleen. Normal pancreatic p arenchymal enhancement. Normal caliber abdominal aorta. Small amount of free fluid in the pelvis. CT/CT abdomen pelvis w con* [id number] IMPRESSION: 1. 2 well-circumscribed fluid collections in the gallbladder fossae and deep t o the LEFT hepatic lobe suspicious for biloma status post cholecystectomy. Cont iguous small amount of fluid about the RIGHT hepatic lobe. Recommend HIDA scan for further evaluation. 2. Mild inflammatory stranding and induration RIGHT upper quadrant. 3. LEFT subhepatic fluid collection compresses the distal stomach and proximal duodenum. 4. Small to moderate amount of free fluid in the pelvis likely postoperative. Notified Moreno Harmon DO at 07/11/2022 1:05 PM.
[2022-07-11 10:51] LABS: Basophils % 0.3 %; Eosinophils % 0.1 %; Hematocrit 42.3 % (37.0-47.0); Hemoglobin 13.6 g/dL (11.5-15.3); Lymphocytes # 0.9 10^3/uL (0.8-4.8); Lymphocytes % 7.8 %; Mean Corpuscular HGB Conc 32.2 g/dL (30.0-36.0); Mean Corpuscular Volume 96.4 fl (81-99); Mean Platelet Volume 9.7 fL (7.4-10.4); Monocytes # 0.5 10^3/uL (0.2-0.9); Monocytes % 4.5 %; Neutrophils # 10.15 10^3/uL (1.8-7.7); Neutrophils % 86.7 %; Nucleated Red Blood Cells % 0 %; Platelet Count 386 10^3/cmm (130-400); Red Blood Count 4.39 10^6/uL (4.1-5.3); Red Cell Distribution Width 12.4 % (12.1-15.1); White Blood Count 11.7 10^3/uL (4.0-10.0)
[2022-07-11 11:11] LABS: Troponin(5th) Baseline 18 ng/L (0-10)
[2022-07-11 11:13] LABS: Alanine Aminotransferase 159 U/L (0-33); Albumin Level 3.7 g/dL (3.5-5.2); Alkaline Phosphatase 198 U/L (35-105); Anion Gap 17.6 (5-19); Aspartate Amino Transferase 81 U/L (0-32); Blood Urea Nitrogen 11 mg/dL (8-23); Calcium 9.1 mg/dL (8.5-10.5); Carbon Dioxide 25 mmol/L (22-29); Chloride 100 mmol/L (98-107); Globulin 2.6 g/dL (1.3-4.6); Glomerular Filtration Rate 71.5 mL/min (90-130); Glucose 112 mg/dL (65-115); Lipase 22 U/L (13-60); Osmolality Calculated 286 mOsm/kg (285-295); Potassium 4.6 mmol/L (3.5-5.1); Sodium 138 mmol/L (136-145); Total Bilirubin 1.6 mg/dL (0.15-1.2); Total Protein 6.3 g/dL (6.6-8.7)
[2022-07-11] MEDS: iohexol 350 mg/mL 500 mL Btl (per mL) IV (12:07)
--- NOTE | 2022-07-11 12:49 | ECG_ITS ---
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 Measurements Intervals [place] Rate: 95 P: 21 LA: 164 QRS: -4 QRSD: 85 T: 4 QT: 314 QTc: 395 Interpretive Statements SINUS RHYTHM MINIMAL VOLTAGE CRITERIA FOR LVH, CONSIDER NORMAL VARIANT [MEETS CRITERIA IN ONE OF: R(aVL), S(V1), R(V5), R(V5/V6)+S(V1)] POSSIBLE ANTERIOR MYOCARDIAL INFARCTION , OF INDETERMINATE AGE [30 ms Q WAVE IN V3/V4, OR R < 0.2 mV IN V4] Compared to ECG 07/11/2022 10:56:22 Myocardial infarct finding now present Electronically Signed On 07-11-2022 20:44:04 CDT by Ramy Levin M.D. [id number]
--- NOTE | 2022-07-11 12:56 | NMR_ITS ---
PROCEDURE INFORMATION: Exam: NM Hepatobiliary Including Gallbladder When Present Exam date and time: 07/11/2022 3:50 PM Age: 66 years old Clinical indication: Ruq pain; Prior surgery; Surgery date: <1 month; Surgery type: Cholecystectomy; Patient HX: Abnormal CT scan; Additional info: Bile leak cholecystectomy TECHNIQUE: Imaging protocol: Hepatobiliary system imaging including the gallbladder when present. Projections: Frontal abdomen. Radiopharmaceutical: 8.2 mCI Tc-99m Mebrofenin (Choletec, Bromotriethyl-HIRAL), IV. Time of imaging post radiopharmaceutical administration: 60 minutes following radiopharmaceutical. COMPARISON: CT abdomen pelvis w con* [id number] 07/11/2022 11:55 AM FINDINGS: Liver: Normal uptake and excretion of radiotracer from the hepatic parenchyma. No accumulation of radiotracer was seen to correspond to the 2nd fluid collection inferior to the left hepatic lobe. Gallbladder: There is accumulation of radiotracer in the gallbladder fossa, this corresponds to the fluid collection noted on the previous CT scan and is suspicious for a bile leak with an associated biloma. Bile ducts: Radiotracer is visualized in the bile ducts at 10 minutes post injection. Stomach and bowel: Radiotracer is visualized in the small bowel at 10 minutes post injection. No evidence for enterogastric reflux. [place]/NM hepatobiliary wo phar [id number] IMPRESSION: 1. There is accumulation of radiotracer in the gallbladder fossa, this corresponds to the fluid collection noted on the previous CT scan and is suspicious for a bile leak with an associated biloma. 2. No accumulation of radiotracer was seen to correspond to the 2nd fluid collection inferior to the left hepatic lobe. COMMENTS: THIS REPORT CONTAINS FINDINGS THAT MAY BE CRITICAL TO PATIENT CARE. The findings were verbally communicated via telephone conference with Dr. Wilburn at 5:29 PM CDT on 07/11/2022. The findings were acknowledged and understood.
--- NOTE | 2022-07-11 13:16 | PC.NURSE ---
Hepatobiliary dose ordered. ETA 1700.
[2022-07-11 13:35] LABS: Lactic Sepsis W/Reflex 1.6 mmol/L (0.5-2.2)
[2022-07-11 13:37] LABS: Troponin 5 2HR 16.91 ng/L (0-10)
[2022-07-11 13:38] LABS: Troponin 5 2HR Delta -1.09 ABS# (0-10)
[2022-07-11] MEDS: piperacillin-tazobactam 3.375 GM in sodium chloride 0.9% (plus) 50 ML IV (14:01)
[2022-07-11 14:57] LABS: Add Urine Microscopic? YES; Bilirubin Urine 2+ (Negative); Blood Urine 2+ (Negative); Glucose Urine UA Norm (Normal); Ketones Urine 1+ (Negative); Leukocyte Esterase Urine 1+ (Negative); Nitrate Urine Positive (Negative); Protein Urine 1+ (Negative); Specific Gravity, Urine 1.025 (1.005-1.030); Urine Appearance Cloudy (CLEAR); Urine Color Orange (Yellow); Urobilinogen Urine 4 mg/dL (Negative); pH Urine 5 (5-7)
[2022-07-11 14:58] LABS: Add Urine Culture? No; Bacteria Urine 2+ /hpf; Mucus Urine 2+ /hpf; Squamous Epithelial Cell Urine 25-40 /hpf (0-5)
--- NOTE | 2022-07-11 17:15 | ECG_ITS ---
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 Measurements Intervals [place] Rate: 89 P: 4 CO: 155 QRS: -12 QRSD: 88 T: -12 QT: 334 QTc: 408 Interpretive Statements SINUS RHYTHM MODERATE VOLTAGE CRITERIA FOR LVH, CONSIDER NORMAL VARIANT [MEETS CRITERIA IN ONE OF: R(aVL), S(V1), R(V5), R(V5/V6)+S(V1)] POSSIBLE ANTERIOR MYOCARDIAL INFARCTION , PROBABLY OLD [30 ms Q WAVE IN V3/V4, OR R < 0.2 mV IN V4] Compared to ECG 07/11/2022 12:49:28 No significant changes Electronically Signed On 07-11-2022 20:42:36 CDT by Ramy Levin M.D. [id number]
[2022-07-11 18:21] LABS: Troponin 5 6HR 19.18 ng/L (0-10)
[2022-07-11 18:27] LABS: Troponin 5 6HR Delta 1.18 ng/L (0-12)
== END 2022-07-11 20:20 | disposition short-term general hospital (02) ==
PROVIDERS: Family Medicine; Emergency Provider Emergency Medicine; PCP Family Medicine
DX: R10.9 Unspecified abdominal pain (principal); K83.8 Other specified diseases of biliary tract
CPT/HCPCS: 36415; 71045; 74177; 78226; 80053; 81001; 83605; 83690; 84484; 85025; 93005; 96365; 96375; 99285; A9537; J2270; J2405; J2543; J7030; Q9967

== ENCOUNTER 2023-04-30 12:02 | Outpatient (CLI) | payer MEDICARE, SELFPAY ==
--- NOTE | 2023-04-30 12:09 | MM_ITS ---
WS: [id number] BILATERAL 3D TOMOSYNTHESIS DIGITAL SCREENING MAMMOGRAPHY WITH CAD CLINICAL INFORMATION: SCREENING HISTORY: Screening mammogram. No current complaints. COMPARISON: 2021 TECHNIQUE: Bilateral CC and MLO views. FINDINGS: Scattered fibroglandular densities bilaterally. No suspicious focal mass, asymmetry, calcifications, or architectural distortion. No evidence of malignancy. Incidental stable intramammary lymph nodes IMPRESSION: MM/[place] [id number] BI-RADS: 2-Benign FOLLOW UP: 1 Year Follow-up Recommend return to annual screening mammography.
== END 2023-04-30 12:03 | disposition home or self-care (01) ==
LOC: RAD 12:03
PROVIDERS: PCP Family Medicine; Visit Provider Family Medicine
DX: Z12.31 Encounter for screening mammogram for malignant neoplasm of breast (principal)
CPT/HCPCS: 77063; 77067

== ENCOUNTER 2023-05-17 20:00 | Outpatient (CLI) | payer MEDICARE, SELFPAY | END 2023-05-17 20:01 | disposition home or self-care (01) | LOC: SLEEP 05-18 04:16 | PROVIDERS: PCP Family Medicine; Visit Provider Family Medicine | DX: G47.10 Hypersomnia, unspecified (principal) | CPT/HCPCS: 95810 ==

== ENCOUNTER 2023-06-26 13:50 | Outpatient (CLI) | payer MEDICARE, SELFPAY ==
--- NOTE | 2023-06-26 13:56 | XRR_ITS ---
PROCEDURE INFORMATION: Exam: XR Chest Exam date and time: 06/26/2023 2:03 PM Age: 67 years old Clinical indication: Shortness of breath; Patient HX: O2 get low at night; Additional info: Hypoxemia TECHNIQUE: Imaging protocol: Radiologic exam of the chest. Views: 2 views. COMPARISON: CR XR chest 1V portable [id number] 07/11/2022 10:18 AM FINDINGS: Lungs: Unremarkable. No consolidation. Pleural spaces: Unremarkable. No pleural effusion. No pneumothorax. Heart/Mediastinum: Unremarkable. No cardiomegaly. Bones/joints: Mild scoliosis with mild multilevel spondylosis. XR/XR chest 2V* [id number] IMPRESSION: No acute disease.
== END 2023-06-26 13:51 | disposition home or self-care (01) ==
LOC: RAD 13:52
PROVIDERS: PCP Family Medicine; Visit Provider Family Medicine
DX: R06.02 Shortness of breath (principal)
CPT/HCPCS: 71046

== ENCOUNTER 2023-07-04 07:47 | Outpatient (CLI) | payer MEDICARE, SELFPAY ==
[2023-07-04 08:11] VITALS: PULSE 64; RESP 18; O2SAT 98
[2023-07-04] MEDS: albuterol 2.5 mg/3 mL Neb INHALATION (08:11)
[2023-07-04 08:15] VITALS: PULSE 68
== END 2023-07-04 07:48 | disposition home or self-care (01) ==
PROVIDERS: PCP Family Medicine; Visit Provider Family Medicine
DX: R09.02 Hypoxemia (principal)
CPT/HCPCS: 94060; 94726; 94729; J7613

== ENCOUNTER 2024-01-18 14:56 | Outpatient (CLI) | payer MEDICARE, SELFPAY ==
--- NOTE | 2024-01-18 14:58 | XR_ITS ---
WS: [id number] SCREENING DEXA SCAN [employer] CLINICAL INFORMATION: POSTMENOPAUSAL COMPARISON: None. FINDINGS: The L1-L4 bone mineral density measures 1.180 g/cm2. This corresponds to a T score score of 0.0 and Z score of 0.5. Left femoral neck bone mineral density measures 0.956 g/cm2. This corresponds to a T score of -0.4 an d Z score of 0.2. Right femoral neck bone mineral density measures 0.984 g/cm2. This corresponds to a T score -0.2of an d Z score of 0.4. Mean femoral neck bone mineral density measures 0.970 g/cm2. This corresponds to a T score of -0.3 an d Z score of 0.3. XR/XR DEXA axial skeleton* [id number] IMPRESSION: Normal bone mineralization. Patient's FRAX calculated 10 year probability for major osteoporotic fracture i s 9.2% and osteoporotic hip fracture is 1.4%.
== END 2024-01-18 14:57 | disposition home or self-care (01) ==
LOC: RAD 14:57
PROVIDERS: PCP Family Medicine; Visit Provider Physician Assistant
DX: Z13.820 Encounter for screening for osteoporosis (principal); Z78.0 Asymptomatic menopausal state
CPT/HCPCS: 77080

== ENCOUNTER 2024-05-20 08:32 | Outpatient (CLI) | payer MEDICARE, SELFPAY ==
--- NOTE | 2024-05-20 08:45 | MM_ITS ---
WS: [id number] BILATERAL 3D TOMOSYNTHESIS DIGITAL SCREENING MAMMOGRAPHY WITH CAD CLINICAL INFORMATION: SCREENING HISTORY: Screening mammogram. No current complaints. COMPARISON: 2023 TECHNIQUE: Bilateral CC and MLO views. FINDINGS: Scattered fibroglandular densities bilaterally. No suspicious focal mass, asymmetry, calcifications, or architectural distortion. No evidence of malignancy. Stable ovoid nodular densities likely intramammary lymph nodes MM/MM scr tomosynthesis [id number] IMPRESSION: DENSITY: There are scattered areas of fibroglandular density. BI-RADS: 2 - Benign. FOLLOW UP: 1 Year Follow-up Recommend return to annual screening mammography.
== END 2024-05-20 08:33 | disposition home or self-care (01) ==
LOC: RAD 08:37
PROVIDERS: PCP Family Medicine; Visit Provider Family Medicine
DX: Z12.31 Encounter for screening mammogram for malignant neoplasm of breast (principal); R92.323 Mammographic fibroglandular density, bilateral breasts; N63.0 Unspecified lump in unspecified breast
CPT/HCPCS: 77063; 77067